=== PATIENT | female | born 1970 | race Hispanic/Latino ===

== ENCOUNTER 2017-07-26 21:13 | Emergency (ER) | payer MEDICARE ==
[2017-07-27 00:10] VITALS: BP 104/64
[2017-07-27 01:04] LABS: Hematocrit 41.1 % (30.3-42.9); Hemoglobin 13.7 gm/dl (10.1-14.3); Mean Corpuscular HGB Conc 33 % (30-34); Mean Corpuscular Hemoglobin 30 pg (28-32); Mean Corpuscular Volume 90 fl (79-97); Platelet Count 322 K/mm3 (140-440); Red Blood Count 4.55 M/mm3 (3.65-5.03); Red Cell Distribution Width 13.3 % (13.2-15.2); White Blood Count 16.3 K/mm3 (4.5-11.0)
[2017-07-27 01:22] LABS: Alanine Aminotransferase 37 units/L (7-56); Albumin/Globulin Ratio 1.5 %; Alkaline Phosphatase 115 units/L (35-129); Anion Gap 17 mmol/L; BUN/Creatinine Ratio 26; Blood Urea Nitrogen 21 mg/dL (7-17); Calcium 9.2 mg/dL (8.4-10.2); Carbon Dioxide 26 mmol/L (22-30); Chloride 97.5 mmol/L (98-107); Glucose 91 mg/dL (65-100); Potassium 4.6 mmol/L (3.6-5.0); Sodium 136 mmol/L (137-145); Total Protein 6.7 g/dL (6.3-8.2)
[2017-07-27 01:28] LABS: Bacteria,Urine 1+ /HPF (Negative); Bilirubin,Urine NEG (Negative); Blood,Urine MOD (Negative); Ketones,Urine NEG (Negative); Leukocyte Esterase,Urine MOD (Negative); Mucus,Urine FEW /HPF; Nitrite,Urine NEG (Negative); Protein,Urine <15 mg/dL mg/dL (Negative); Urobilinogen,Urine < 2.0 mg/dL (<2.0)
== END 2017-07-27 00:05 | disposition left against medical advice (07) ==
LOC: ED 21:13
DX: R50.9 Fever, unspecified (principal); Z53.21 Procedure and treatment not carried out due to patient leaving prior to being seen by health care provider
CPT/HCPCS: 36415; 80053; 81001; 83690; 85027

== ENCOUNTER 2018-11-01 15:53 | Emergency (ER) | payer MEDICARE ==
--- NOTE | 2018-11-01 16:22 | Emergency Department Report ---
Chief Complaint: Upper Respiratory Infection Stated Complaint: FLU SYMPTOMS Time Seen by Provider: 11/01/18 16:17 - HPI History of Present Illness: This is a 48 y.o. female that presents with URI symptoms. She reports fever, dizziness, nausea, back pain, and cough. Chest and back pain with coughs. - Exam Vital Signs: Vital Signs 11/01/18 16:18 Temperature 100 F H Pulse Rate 120 H Respiratory 18 Rate Blood Pressure 101/65 O2 Sat by Pulse 97 Oximetry MSE screening note: Focused history and physical exam performed. Due to findings the following was ordered: CXR Fast track for further evaluation. ED Disposition for MSE Condition: Stable
[2018-11-01] MEDS ORDERED: TYLENOL PO ONE (17:53)
[2018-11-01] MEDS ORDERED: ZOFRAN ODT PO ONE (17:53)
--- NOTE | 2018-11-01 18:20 | Emergency Department Report ---
- General Chief Complaint: Upper Respiratory Infection Stated Complaint: FLU SYMPTOMS Time Seen by Provider: 11/01/18 16:17 Source: patient Mode of arrival: Ambulatory Limitations: No Limitations - History of Present Illness Initial Comments: Pt presents to the ED with c/o a cough that began a couple of days ago. She has green/yellow sputum production. The patient has associated fever, nausea, light- headedness, generalized weakness, generalized body aches. She denies any sore throat or ear ache. The patient has been drinking plenty of fluids. She states she last took aleve at 11 AM this morning. She did have a influenza vaccine this year. She states she has sick contacts with people who have PNA. The patient states she is a smoker. - Related Data Home Medications Medication Instructions Recorded Confirmed Last Taken [address]] 75 mg PO BID 07/26/17 07/26/17 Unknown Previous Rx's Medication Instructions Recorded Last Taken Type Azithromycin [Zithromax Z-ARIELLE] 250 mg PO DAILY 5 Days #6 tablet 11/01/18 Unknown Rx Benzonatate [Tessalon Perles] 100 mg PO Q8HR PRN #20 capsule 11/01/18 Unknown Rx Prednisone [predniSONE 10 mg 10 mg PO .TAPER #1 tab.ds.pk 11/01/18 Unknown Rx (6-Day Pack, 21 Tabs)] Promethazine [Phenergan TAB] 25 mg PO Q8HR PRN #10 tab 11/01/18 Unknown Rx guaiFENesin [Mucinex] 600 mg PO BID #14 tab.er.12h 11/01/18 Unknown Rx Allergies Allergy/AdvReac Type Severity Reaction Status Date / Time Penicillins Allergy STOP Verified 09/21/14 08:58 BREATHING ED Review of Systems ROS: Stated complaint: FLU SYMPTOMS Other details as noted in HPI Comment: All other systems reviewed and negative ED Past Medical Hx - Past Medical History Previous Medical History?: Yes Hx Psychiatric Treatment: Yes (BIPOLAR , DEPRESSION, ANXIETY, PTSD, OCD) Additional medical history: INSOMNIA. Chronic Bronchitis. high cholesterol. Cervical Cancer 2006 and 2008 - Surgical History Past Surgical History?: Yes Additional Surgical History: ECTOPIC X 2, Post Op 6 days Hysterectomy via Lap - Social History Smoking Status: Current Every Day Smoker Substance Use Type: None - Medications Home Medications: Home Medications Medication Instructions Recorded Confirmed Last Taken Type Kay [address] Dr] 75 mg PO BID 07/26/17 07/26/17 Unknown History Azithromycin [Zithromax Z-ARIELLE] 250 mg PO DAILY 5 Days #6 tablet 11/01/18 Unknown Rx Benzonatate [Tessalon Perles] 100 mg PO Q8HR PRN #20 capsule 11/01/18 Unknown Rx Prednisone [predniSONE 10 mg 10 mg PO .TAPER #1 tab.ds.pk 11/01/18 Unknown Rx (6-Day Pack, 21 Tabs)] Promethazine [Phenergan TAB] 25 mg PO Q8HR PRN #10 tab 11/01/18 Unknown Rx guaiFENesin [Mucinex] 600 mg PO BID #14 tab.er.12h 11/01/18 Unknown Rx ED Physical Exam - General Limitations: No Limitations General appearance: alert, in no apparent distress, other (pt feels slightly warm on exam, will give tylenol) - Head Head exam: Present: atraumatic, normocephalic - Eye Eye exam: Present: normal appearance - ENT ENT exam: Present: normal orophraynx, mucous membranes moist, TM's normal bilaterally, normal external ear exam - Neck Neck exam: Present: normal inspection, full ROM. Absent: tenderness, meningismus - Respiratory Respiratory exam: Present: normal lung sounds bilaterally. Absent: respiratory distress, wheezes, rales, rhonchi, stridor, chest wall tenderness, accessory muscle use, decreased breath sounds, prolonged expiratory - Cardiovascular Cardiovascular Exam: Present: regular rate, normal rhythm, normal heart sounds. Absent: systolic murmur, rubs, gallop - Neurological Exam Neurological exam: Present: alert, oriented X3 - Psychiatric Psychiatric exam: Present: normal affect, normal mood - Skin Skin exam: Present: warm, dry, intact ED Course Vital Signs 11/01/18 11/01/18 11/01/18 16:18 18:03 18:41 Temperature 100 F H Pulse Rate 120 H Respiratory 18 18 18 Rate Blood Pressure 101/65 Blood Pressure [Left] O2 Sat by Pulse 97 Oximetry 11/01/18 19:52 Temperature 98.9 F Pulse Rate 98 H Respiratory 19 Rate Blood Pressure Blood Pressure 135/85 [Left] O2 Sat by Pulse 98 Oximetry ED Medical Decision Making - Lab Data Temp Pulse Resp BP Pulse Ox 98.9 F 98 H 19 135/85 98 11/01/18 19:52 11/01/18 19:52 11/01/18 19:52 11/01/18 19:52 11/01/18 19:52 Vital Signs 11/01/18 11/01/18 11/01/18 16:18 18:03 18:41 Temperature 100 F H Pulse Rate 120 H Respiratory 18 18 18 Rate Blood Pressure 101/65 Blood Pressure [Left] O2 Sat by Pulse 97 Oximetry 11/01/18 19:52 Temperature 98.9 F Pulse Rate 98 H Respiratory 19 Rate Blood Pressure Blood Pressure 135/85 [Left] O2 Sat by Pulse 98 Oximetry - Radiology Data Radiology results: report reviewed PROCEDURE: XR CHEST ROUTINE 2V TECHNIQUE: Chest 2 views HISTORY: cough COMPARISONS: FINDINGS: Cardiac and mediastinal contours are unremarkable. No focal pulmonary infiltrate identified. No pleural fluid collection seen. Pulmonary vasculature is unremarkable. IMPRESSION: Negative no acute abnormality identified in the chest. This document is electronically signed by Dangelo Maciel MD., November 01 2018 06:34:19 PM ET - Medical Decision Making Pt is a 48 yo female who presents to the ED with c/o a productive cough that began a couple of days ago. associated fever, nausea, light-headedness, generalized weakness, generalized body aches. She denies any sore throat or ear ache. Pt is tolerating PO intake. Fever resolved after motrin/tylenol. HR improved to normal. Oxygen saturation 98% on RA. VSS at discharge. CXR with no acute process. Due to sick contacts with PNA, will tx pt empirically. Advised pt to take all medication as prescribed. Discussed with pt to follow up with PCP in the next 2-3 days. Return to the ED for any new or worsening symptoms. - Differential Diagnosis PNA, URI, Viral syndrome Critical care attestation.: If time is entered above; I have spent that time in minutes in the direct care of this critically ill patient, excluding procedure time. ED Disposition Clinical Impression: Upper respiratory infection Qualifiers: URI type: unspecified URI Qualified Code(s): J06.9 - Acute upper respiratory infection, unspecified Disposition: DC-01 TO HOME OR SELFCARE Is pt being admited?: No Does the pt Need Aspirin: No Condition: Stable Instructions: Upper Respiratory Infection (ED) Additional Instructions: Follow up with your primary care doctor in the next 2-3 days. Take all medication as prescribed. Use tylenol/motrin for a temperature of 100.4 or greater. Return to the emergency room for any new or worsening symptoms. Prescriptions: guaiFENesin [Mucinex] 600 mg PO BID #14 tab.er.12h Promethazine [Phenergan TAB] 25 mg PO Q8HR PRN #10 tab PRN Reason: Nausea Prednisone [predniSONE 10 mg (6-Day Pack, 21 Tabs)] 10 mg PO .TAPER #1 tab.ds.pk Benzonatate [Tessalon Perles] 100 mg PO Q8HR PRN #20 capsule PRN Reason: Cough Azithromycin [Zithromax Z-ARIELLE] 250 mg PO DAILY 5 Days #6 tablet Referrals: SHAINA ASCENCIO MD [Primary Care Provider] - 2-3 Days Forms: Work/School Release Form(ED) Time of Disposition: 18:51 Print Language: ESTONIAN
--- NOTE | 2018-11-01 18:36 | XRay Report ---
PROCEDURE: XR CHEST ROUTINE 2V TECHNIQUE: Chest 2 views HISTORY: cough COMPARISONS: FINDINGS: Cardiac and mediastinal contours are unremarkable. No focal pulmonary infiltrate identified. No pleur al fluid collection seen. Pulmonary vasculature is unremarkable. IMPRESSION: Negative no acute abnormality identified in the chest. This document is electronically signed by Dangelo Maciel MD., November 01 2018 06:34:19 PM ET
[2018-11-01] MEDS ORDERED: IBUPROFEN ONE (19:04)
[2018-11-01 19:55] VITALS: BP 135/85
== END 2018-11-01 19:52 | disposition home or self-care (01) ==
LOC: ED 15:53
DX: J06.9 Acute upper respiratory infection, unspecified (principal); F31.9 Bipolar disorder, unspecified; F17.200 Nicotine dependence, unspecified, uncomplicated; Z88.0 Allergy status to penicillin
CPT/HCPCS: 71046; Q0162